=== PATIENT | male | born 1935 | race Caucasian/White ===

== ENCOUNTER → 2016-08-15 | Outpatient (REF) | payer MEDICARE, OTHER | LOC: M LABDRAWC 11:11 | PROVIDERS: ATTEND Urology | DX: R35.0 Frequency of micturition (principal) ==

== ENCOUNTER → 2016-08-15 | Outpatient (REF) | payer MEDICARE, OTHER ==
[2016-08-15 12:33] LABS: ALBUMIN 3.4 GM/DL (3.2-5.2); ALBUMIN/GLOBULIN RATIO 1.06 (1.00-1.93); BILIRUBIN,TOTAL 0.4 MG/DL (0.2-1.0); CALCIUM LEVEL 9.4 MG/DL (8.8-10.2); CREATININE FOR GFR 1.48 MG/DL (0.70-1.30); GLOMERULAR FILTRATION RATE 48.4 (>35); POTASSIUM SERUM 4.8 MEQ/L (3.5-5.1); TOTAL PROTEIN 6.6 GM/DL (6.4-8.2)
== END ==
LOC: M SFHCCLAY 07:33
PROVIDERS: ATTEND Family Medicine
DX: E11.65 Type 2 diabetes mellitus with hyperglycemia (principal); R35.0 Frequency of micturition

== ENCOUNTER → 2017-02-12 | Outpatient (REF) | payer MEDICARE, OTHER ==
[2017-02-12 12:47] LABS: ALBUMIN 3.2 GM/DL (3.2-5.2); ALBUMIN/GLOBULIN RATIO 1.07 (1.00-1.93); BILIRUBIN,TOTAL 0.4 MG/DL (0.2-1.0); CALCIUM LEVEL 8.9 MG/DL (8.8-10.2); CREATININE FOR GFR 1.3 MG/DL (0.70-1.30); GLOMERULAR FILTRATION RATE 56.1 (>35); POTASSIUM SERUM 4.7 MEQ/L (3.5-5.1); TOTAL PROTEIN 6.2 GM/DL (6.4-8.2)
== END ==
LOC: M SFHCCLAY 08:12
PROVIDERS: ATTEND Family Medicine
DX: E11.65 Type 2 diabetes mellitus with hyperglycemia (principal)

== ENCOUNTER → 2017-08-14 | Outpatient (REF) | payer MEDICARE, OTHER ==
[2017-08-14 11:43] LABS: ALBUMIN 3.5 GM/DL (3.2-5.2); ALBUMIN/GLOBULIN RATIO 1.17 (1.00-1.93); ALKALINE PHOSPHATASE 63 U/L (45-117); ALT/SGPT 13 U/L (12-78); ANION GAP 7 MEQ/L (8-16); AST/SGOT 12 U/L (7-37); BILIRUBIN,TOTAL 0.5 MG/DL (0.2-1.0); BLOOD UREA NITROGEN 20 MG/DL (7-18); CARBON DIOXIDE LEVEL 28 MEQ/L (21-32); CHLORIDE LEVEL 109 MEQ/L (98-107); CHOLESTEROL LEVEL 134 MG/DL (<200); CHOLESTEROL RISK RATIO 2.913 (<5); CREATININE FOR GFR 1.24 MG/DL (0.70-1.30); GLOMERULAR FILTRATION RATE 59.3 (>35); GLUCOSE, FASTING 119 MG/DL (70-100); HDL CHOLESTEROL 46 MG/DL (>40); NON-HDL-C 88 MG/DL; POTASSIUM SERUM 4.6 MEQ/L (3.5-5.1); PSA SCREENING 0.26 NG/ML (< 4.0); SODIUM LEVEL 144 MEQ/L (136-145); TOTAL PROTEIN 6.5 GM/DL (6.4-8.2); TRIGLYCERIDES LEVEL 70 MG/DL (<150)
[2017-08-14 13:24] LABS: ESTIMATED AVERAGE GLUCOSE 157 MG/DL (60-110); HEMOGLOBIN A1c 7.1 %
== END ==
LOC: M SFHCCLAY 07:48
DX: Z12.5 Encounter for screening for malignant neoplasm of prostate (principal); E11.65 Type 2 diabetes mellitus with hyperglycemia; I10 Essential (primary) hypertension
CPT/HCPCS: 84443

== ENCOUNTER → 2018-02-05 | Outpatient (REF) | payer MEDICARE, OTHER ==
[2018-02-05 11:55] LABS: ESTIMATED AVERAGE GLUCOSE 183 MG/DL (60-110)
[2018-02-05 12:50] LABS: ALBUMIN 3.2 GM/DL (3.2-5.2); ALKALINE PHOSPHATASE 78 U/L (45-117); ALT/SGPT 21 U/L (12-78); ANION GAP 10 MEQ/L (8-16); AST/SGOT 13 U/L (7-37); BILIRUBIN,TOTAL 0.4 MG/DL (0.2-1.0); BLOOD UREA NITROGEN 23 MG/DL (7-18); CALCIUM LEVEL 8.7 MG/DL (8.8-10.2); CARBON DIOXIDE LEVEL 23 MEQ/L (21-32); CHLORIDE LEVEL 108 MEQ/L (98-107); CREATININE FOR GFR 1.41 MG/DL (0.70-1.30); GLUCOSE, FASTING 133 MG/DL (70-100); POTASSIUM SERUM 4.6 MEQ/L (3.5-5.1); SODIUM LEVEL 141 MEQ/L (136-145); TOTAL PROTEIN 6.1 GM/DL (6.4-8.2)
== END ==
LOC: M SFHCCLAY 07:40
DX: E11.40 Type 2 diabetes mellitus with diabetic neuropathy, unspecified (principal); E03.9 Hypothyroidism, unspecified
CPT/HCPCS: 84443

== ENCOUNTER → 2018-05-23 | Outpatient (CLI) | payer MEDICARE, OTHER ==
--- NOTE | 2018-05-23 11:08 | REP ---
Chest two views HISTORY: Bronchitis Comparison: 03/10/2013 A calcified granuloma is present in the left lower lobe. Linear densities are present in the left lower lobe consistent with scar. The right lung is clear. The heart is normal in size. The pulmonary vasculature is normal in appearance. The bony structure is intact. IMPRESSION: No acute disease.
== END ==
LOC: M CLY 10:26
PROVIDERS: ATTEND Nurse Practitioner Family
DX: R91.8 Other nonspecific abnormal finding of lung field (principal); J40 Bronchitis, not specified as acute or chronic
CPT/HCPCS: 71046; G0463

== ENCOUNTER → 2018-08-05 | Outpatient (REF) | payer MEDICARE, OTHER ==
[2018-08-05 12:19] LABS: ALBUMIN 3.3 GM/DL (3.2-5.2); BILIRUBIN,TOTAL 0.4 MG/DL (0.2-1.0); CALCIUM LEVEL 8.2 MG/DL (8.8-10.2); CREATININE FOR GFR 1.37 MG/DL (0.70-1.30); GLOMERULAR FILTRATION RATE 52.7 (>35); POTASSIUM SERUM 4.5 MEQ/L (3.5-5.1); THYROID STIMULATING HORMONE 7.67 uIU/ML (0.358-3.740); TOTAL PROTEIN 5.9 GM/DL (6.4-8.2)
[2018-08-05 12:28] LABS: HEMOGLOBIN A1c 8.1 %
== END ==
LOC: M SFHCCLAY 07:49
PROVIDERS: ATTEND Family Medicine
DX: E11.40 Type 2 diabetes mellitus with diabetic neuropathy, unspecified (principal); E03.9 Hypothyroidism, unspecified

== ENCOUNTER → 2019-02-06 | Outpatient (REF) | payer MEDICARE, OTHER ==
[2019-02-06 12:10] LABS: HEMOGLOBIN A1c 8.3 %
[2019-02-06 12:12] LABS: ALBUMIN 3.2 GM/DL (3.2-5.2); BILIRUBIN,TOTAL 0.7 MG/DL (0.2-1.0); CALCIUM LEVEL 8.9 MG/DL (8.8-10.2); CREATININE FOR GFR 1.49 MG/DL (0.70-1.30); GLOMERULAR FILTRATION RATE 47.7 (>35); POTASSIUM SERUM 4.7 MEQ/L (3.5-5.1); THYROID STIMULATING HORMONE 4.18 uIU/ML (0.358-3.740)
== END ==
LOC: M SFHCCLAY 07:33
PROVIDERS: ATTEND Family Medicine
DX: E11.40 Type 2 diabetes mellitus with diabetic neuropathy, unspecified (principal); E03.9 Hypothyroidism, unspecified

== ENCOUNTER → 2019-08-07 | Outpatient (REF) | payer MEDICARE, OTHER ==
[2019-08-07 11:47] LABS: ALBUMIN 3.2 GM/DL (3.2-5.2); BILIRUBIN,TOTAL 0.6 MG/DL (0.2-1.0); CALCIUM LEVEL 8.8 MG/DL (8.8-10.2); CHOLESTEROL RISK RATIO 2.425 (<5); CREATININE FOR GFR 1.53 MG/DL (0.70-1.30); GLOMERULAR FILTRATION RATE 46.3 (>35); POTASSIUM SERUM 4.4 MEQ/L (3.5-5.1); THYROID STIMULATING HORMONE 1.89 uIU/ML (0.358-3.740); TOTAL PROTEIN 6.1 GM/DL (6.4-8.2)
[2019-08-07 14:07] LABS: HEMOGLOBIN A1c 8.3 %
== END ==
LOC: M SFHCCLAY 07:39
PROVIDERS: ATTEND Family Medicine
DX: E11.40 Type 2 diabetes mellitus with diabetic neuropathy, unspecified (principal); E03.9 Hypothyroidism, unspecified

== ENCOUNTER → 2020-01-28 | Outpatient (REF) | payer MEDICARE, OTHER ==
[2020-01-28 12:59] LABS: ALBUMIN 3.6 GM/DL (3.2-5.2); BILIRUBIN,TOTAL 0.4 MG/DL (0.2-1.0); CREATININE FOR GFR 1.87 MG/DL (0.70-1.30); GLOMERULAR FILTRATION RATE 36.6 (>35); POTASSIUM SERUM 4.7 MEQ/L (3.5-5.1); THYROID STIMULATING HORMONE 0.91 uIU/ML (0.358-3.740); TOTAL PROTEIN 6.5 GM/DL (6.4-8.2)
[2020-01-28 14:02] LABS: HEMOGLOBIN A1c 7.9 %
== END ==
LOC: M SFHCCLAY 08:26
PROVIDERS: ATTEND Family Medicine
DX: E11.40 Type 2 diabetes mellitus with diabetic neuropathy, unspecified (principal); E03.9 Hypothyroidism, unspecified; Z23 Encounter for immunization
CPT/HCPCS: 80053; 83036; 84443; 90682; G0008

== ENCOUNTER → 2020-08-18 | Outpatient (REF) | payer MEDICARE, OTHER ==
[2020-08-18 16:19] LABS: HEMATOCRIT 35.5 % (42.0-52.0); HEMOGLOBIN 10.8 g/dl (13.5-17.5); MEAN CORPUSCULAR HEMOGLOBIN 27.9 pg (27.0-33.0); MEAN CORPUSCULAR HGB CONC 30.4 g/dl (32.0-36.5); MEAN CORPUSCULAR VOLUME 91.7 fl (80.0-96.0); PLATELET COUNT, AUTOMATED 342 10^3/uL (150-450); RED BLOOD COUNT 3.87 10^6/uL (4.30-6.10); WHITE BLOOD COUNT 10.8 10^3/uL (4.0-10.0)
[2020-08-18 16:53] LABS: ALBUMIN 3.3 GM/DL (3.2-5.2); BILIRUBIN,TOTAL 0.3 MG/DL (0.2-1.0); CALCIUM LEVEL 9.3 MG/DL (8.8-10.2); CHOLESTEROL RISK RATIO 2.456 (<5); CREATININE FOR GFR 1.45 MG/DL (0.70-1.30); GLOMERULAR FILTRATION RATE 49.1 (>35); POTASSIUM SERUM 4.5 MEQ/L (3.5-5.1); THYROID STIMULATING HORMONE 3.11 uIU/ML (0.358-3.740); TOTAL PROTEIN 6.4 GM/DL (6.4-8.2)
[2020-08-18 17:02] LABS: MALB URINE SIEMENS 5.8 MG/L; MAU/CREAT RATIO 4.4 MCG/MG (0.0-30.0)
[2020-08-18 17:27] LABS: HEMOGLOBIN A1c 7.7 %
== END ==
LOC: M SFHCCLAY 10:35
PROVIDERS: ATTEND Family Medicine
DX: I10 Essential (primary) hypertension (principal); E11.40 Type 2 diabetes mellitus with diabetic neuropathy, unspecified; E78.2 Mixed hyperlipidemia; E03.9 Hypothyroidism, unspecified

== ENCOUNTER → 2020-08-26 | Outpatient (CLI) | payer MEDICARE, OTHER ==
--- NOTE | 2020-08-26 16:02 | REP ---
INDICATION: M54.5 LOW BACK PAIN COMPARISON: None. TECHNIQUE: AP, lateral, bilateral oblique, and coned-down views of the lumbar spine. FINDINGS: Age-related osteopenia noted. No acute fracture/compression injury or subluxation. Moderate to advanced multilevel degenerative changes throughout the visualized lower thoracic and lumbosacral spine include osteophytosis, endplate sclerosis, facet hypertrophy, and disc space narrowing. Findings most pronounced at L4-5 and L5-S1. IMPRESSION: Osteopenia and moderate to advanced multilevel degenerative spondylosis. No acute fracture/compression injury or acute subluxation. <Electronically signed by Rogerio Stone > 08/26/20 [id number]
== END ==
LOC: M CLY 15:36
PROVIDERS: ATTEND Family Medicine
DX: M85.88 Other specified disorders of bone density and structure, other site (principal); M47.816 Spondylosis without myelopathy or radiculopathy, lumbar region; M54.5 Low back pain
CPT/HCPCS: 72110; G0463

== ENCOUNTER → 2021-03-21 | Outpatient (CLI) | payer MEDICARE, OTHER | LOC: M CLY 10:37 | PROVIDERS: ATTEND Physician Assistant | DX: S49.92XA Unspecified injury of left shoulder and upper arm, initial encounter (principal); Y92.9 Unspecified place or not applicable; Y93.9 Activity, unspecified; Y99.9 Unspecified external cause status | CPT/HCPCS: 73030; 80053; G0463 ==

== ENCOUNTER → 2021-03-21 | Outpatient (REF) | payer MEDICARE, OTHER ==
[2021-03-21 16:31] LABS: ALBUMIN 3.4 GM/DL (3.2-5.2); BILIRUBIN,TOTAL 0.5 MG/DL (0.2-1.0); CALCIUM LEVEL 9.5 MG/DL (8.8-10.2); CREATININE FOR GFR 1.57 MG/DL (0.70-1.30); GLOMERULAR FILTRATION RATE 44.7 (>35); POTASSIUM SERUM 4.7 MEQ/L (3.5-5.1); TOTAL PROTEIN 6.4 GM/DL (6.4-8.2)
== END ==
LOC: M SFHCCLAY 11:20
PROVIDERS: ATTEND Physician Assistant
DX: S49.91XA Unspecified injury of right shoulder and upper arm, initial encounter (principal); X58.XXXA Exposure to other specified factors, initial encounter; Y92.9 Unspecified place or not applicable; Y93.9 Activity, unspecified

== ENCOUNTER → 2021-04-08 | Outpatient (CLI) | payer MEDICARE, OTHER ==
[~2021-04-08] MED LIST: PROHANCE 279.3MG/ML 5ML VIAL ONE
== END ==
LOC: M PLAIMG 09:35
PROVIDERS: ATTEND Physician Assistant
DX: S49.92XA Unspecified injury of left shoulder and upper arm, initial encounter (principal); X58.XXXA Exposure to other specified factors, initial encounter; Y92.9 Unspecified place or not applicable
CPT/HCPCS: 73223; A9576

== ENCOUNTER → 2021-05-18 | Outpatient (REF) | payer MEDICARE, OTHER | LOC: M SFHCCLAY 15:15 | PROVIDERS: ATTEND Physician Assistant | DX: R09.81 Nasal congestion (principal) ==

== ENCOUNTER → 2021-08-19 | Outpatient (REF) | payer MEDICARE, OTHER ==
[2021-08-19 15:41] LABS: BASO # 0.1 10^3/uL (0.0-0.2); BASO % 0.5 % (0.0-1.0); EOS # 0.3 10^3/uL (0.0-0.5); EOS % 3.4 % (0.0-3.0); HEMATOCRIT 38.8 % (42.0-52.0); HEMOGLOBIN 12.3 g/dl (13.5-17.5); LYMPH # 2.1 10^3/uL (1.5-5.0); LYMPH % 22.6 % (24.0-44.0); MEAN CORPUSCULAR HEMOGLOBIN 28.5 pg (27.0-33.0); MEAN CORPUSCULAR HGB CONC 31.7 g/dl (32.0-36.5); MEAN CORPUSCULAR VOLUME 89.8 fl (80.0-96.0); MONO # 0.7 10^3/uL (0.0-0.8); MONO % 7.1 % (2.0-8.0); NEUTROPHILS # 6.2 10^3/uL (1.5-8.5); NEUTROPHILS % 66.1 % (36.0-66.0); PLATELET COUNT, AUTOMATED 248 10^3/uL (150-450); RED BLOOD COUNT 4.32 10^6/uL (4.30-6.10); WHITE BLOOD COUNT 9.3 10^3/uL (4.0-10.0)
[2021-08-19 16:20] LABS: ALBUMIN 3.6 GM/DL (3.2-5.2); BILIRUBIN,TOTAL 0.6 MG/DL (0.2-1.0); CALCIUM LEVEL 9.5 MG/DL (8.8-10.2); CHOLESTEROL RISK RATIO 2.725 (<5); CREATININE FOR GFR 1.54 MG/DL (0.70-1.30); GLOMERULAR FILTRATION RATE 45.7 (>35); POTASSIUM SERUM 4.6 MEQ/L (3.5-5.1); THYROID STIMULATING HORMONE 3.7 uIU/ML (0.358-3.740); TOTAL PROTEIN 6.4 GM/DL (6.4-8.2)
[2021-08-19 16:31] LABS: HEMOGLOBIN A1c 9.2 %
== END ==
LOC: M SFHCCLAY 14:02
PROVIDERS: ATTEND Family Medicine
DX: E11.40 Type 2 diabetes mellitus with diabetic neuropathy, unspecified (principal); E03.9 Hypothyroidism, unspecified; N18.32 Chronic kidney disease, stage 3b; I12.9 Hypertensive chronic kidney disease with stage 1 through stage 4 chronic kidney disease, or unspecified chronic kidney disease; E78.2 Mixed hyperlipidemia

== ENCOUNTER → 2021-11-02 | Outpatient (CLI) | payer MEDICARE, OTHER | LOC: M CARPUL 13:06 | PROVIDERS: ATTEND Internal Medicine Cardiovascular Disease | DX: R06.00 Dyspnea, unspecified (principal) ==

== ENCOUNTER → 2022-02-10 | Outpatient (REF) | payer MEDICARE, OTHER ==
[2022-02-10 18:31] LABS: ALBUMIN 3.3 GM/DL (3.2-5.2); BILIRUBIN,TOTAL 0.6 MG/DL (0.2-1.0); CALCIUM LEVEL 9.2 MG/DL (8.8-10.2); CREATININE FOR GFR 1.7 MG/DL (0.70-1.30); GLOMERULAR FILTRATION RATE 40.7 (>35); THYROID STIMULATING HORMONE 2.47 uIU/ML (0.358-3.740); TOTAL PROTEIN 6.4 GM/DL (6.4-8.2)
[2022-02-10 21:17] LABS: HEMOGLOBIN A1c 8.5 %
== END ==
LOC: M SFHCCLAY 11:17
PROVIDERS: ATTEND Family Medicine
DX: E11.40 Type 2 diabetes mellitus with diabetic neuropathy, unspecified (principal); E03.9 Hypothyroidism, unspecified

== ENCOUNTER → 2022-04-19 | Outpatient (CLI) | payer MEDICARE, OTHER | LOC: M LABSMTC 09:49 | PROVIDERS: ATTEND Anesthesiology | DX: Z01.812 Encounter for preprocedural laboratory examination (principal); Z20.822 Contact with and (suspected) exposure to COVID-19 ==

== ENCOUNTER 2022-04-24 06:23 | Day surgery (SDC) | payer MEDICARE, OTHER ==
[~2022-04-24] VITALS: Ht 171.4 cm; Wt 103.0 kg
[~2022-04-24 06:23] MED LIST changes: +ALBU90AE INH; +ALFU10TA3 PO; +CYCLOPENTOLATE 1% OPHTH SOLN 2ML BTL OD SCH; +FINA5TAB2 PO; +FLURBIPROFEN 0.03% OPHTH SOLN 2.5 ML OD SCH; +GABA600T4 PO; +METF500T13 PO; +PHENYLEPHRINE 2.5% OPHTH SOL 2ML OD SCH; +PRED10TA2 PO; -PROHANCE 279.3MG/ML 5ML VIAL ONE; +RABE1TAB4 PO; +SITA50TAB PO; +SYNT100T PO; +TETRACAINE 0.5% OPHTH SOLN 4ML OD SCH; +VICT18IN SC
[2022-04-24] MEDS ORDERED: LIDOCAINE 1% SDV 5ML VIAL As Ordered ONE (06:31)
[2022-04-24] MEDS ORDERED: LR 1,000 ML IV SCH (07:00)
[2022-04-24 09:05] VITALS: BP 155/66
== END 2022-04-24 09:05 | disposition home or self-care (01) ==
LOC: M SDC 06:23
PROVIDERS: ATTEND Ophthalmology
DX: H25.811 Combined forms of age-related cataract, right eye (principal); E03.9 Hypothyroidism, unspecified; E11.9 Type 2 diabetes mellitus without complications; Z88.8 Allergy status to other drugs, medicaments and biological substances; Z79.899 Other long term (current) drug therapy
CPT/HCPCS: 66984; V2632

== ENCOUNTER → 2022-08-03 | Outpatient (REF) | payer MEDICARE, OTHER ==
[~2022-08-03] MED LIST changes: -CYCLOPENTOLATE 1% OPHTH SOLN 2ML BTL OD SCH; -FLURBIPROFEN 0.03% OPHTH SOLN 2.5 ML OD SCH; -PHENYLEPHRINE 2.5% OPHTH SOL 2ML OD SCH; -TETRACAINE 0.5% OPHTH SOLN 4ML OD SCH
[2022-08-03 18:33] LABS: ALBUMIN 3.5 G/DL (3.2-5.2); ALKALINE PHOSPHATASE 81 U/L (46-116); ALT/SGPT 15 U/L (7.0-40); AST/SGOT < 8 U/L (<34); BILIRUBIN,TOTAL 0.4 MG/DL (0.3-1.2); BLOOD UREA NITROGEN 25 MG/DL (9-23); CALCIUM LEVEL 9.3 MG/DL (8.3-10.6); CARBON DIOXIDE LEVEL 28 MMOL/L (20-31); CHLORIDE LEVEL 105 MMOL/L (98-107); CHOLESTEROL LEVEL 125 MG/DL (<200); CHOLESTEROL RISK RATIO 2.53 (<5); CREATININE FOR GFR 1.48 MG/DL (0.70-1.30); GLOMERULAR FILTRATION RATE 47.8 (>35); GLUCOSE, FASTING 129 MG/DL (74-106); HDL CHOLESTEROL 49.3 MG/DL (>40); LDL CHOLESTEROL 59.5 MG/DL (<100); MAGNESIUM LEVEL 1.6 MG/DL (1.8-2.4); NON-HDL-C 75.7 MG/DL; POTASSIUM SERUM 4.4 MMOL/L (3.5-5.1); SODIUM LEVEL 138 MMOL/L (136-145); TRIGLYCERIDES LEVEL 81 MG/DL (<150)
[2022-08-03 18:34] LABS: THYROID STIMULATING HORMONE 2.025 uIU/ML (0.55-4.78)
== END ==
LOC: M SFHCCLAY 13:28
PROVIDERS: ATTEND Family Medicine
DX: E78.2 Mixed hyperlipidemia (principal); K21.9 Gastro-esophageal reflux disease without esophagitis; E11.40 Type 2 diabetes mellitus with diabetic neuropathy, unspecified; E03.9 Hypothyroidism, unspecified

== ENCOUNTER → 2023-02-06 | Outpatient (REF) | payer MEDICARE, OTHER ==
[2023-02-06 18:22] LABS: THYROID STIMULATING HORMONE 3.465 uIU/ML (0.55-4.78)
[2023-02-06 18:23] LABS: ALBUMIN 3.3 G/DL (3.2-5.2); BILIRUBIN,TOTAL 0.4 MG/DL (0.3-1.2); CALCIUM LEVEL 8.9 MG/DL (8.3-10.6); CREATININE FOR GFR 1.49 MG/DL (0.70-1.30); GLOMERULAR FILTRATION RATE 47.3 (>35); MAGNESIUM LEVEL 1.3 MG/DL (1.8-2.4); POTASSIUM SERUM 4.7 MMOL/L (3.5-5.1); TOTAL PROTEIN 6.1 G/DL (5.7-8.2)
== END ==
LOC: M SFHCCLAY 13:19
PROVIDERS: ATTEND Family Medicine
DX: E11.40 Type 2 diabetes mellitus with diabetic neuropathy, unspecified (principal); E03.9 Hypothyroidism, unspecified; K21.9 Gastro-esophageal reflux disease without esophagitis

== ENCOUNTER → 2023-09-11 | Outpatient (REF) | payer MEDICARE, OTHER ==
[~2023-09-11] MED LIST changes: -ALBU90AE INH; +ALBU90AE2 INH
== END ==
LOC: M LABDRAWC 17:20
PROVIDERS: ATTEND Physician Assistant
DX: J02.9 Acute pharyngitis, unspecified (principal)

== ENCOUNTER 2023-09-21 15:58 | Observation (INO) | payer MEDICARE, OTHER ==
[~2023-09-21] VITALS: Ht 170.2 cm; Wt 100.5 kg
[~2023-09-21 15:58] MED LIST changes: -ALBU8.5H INH; -BASA100I SC; -DOXY100C3 PO; -FURO20TA2 PO; -JANU25TA PO; -JARD1TAB3 PO; -LYRI75CA PO; -MONT10TA97 PO; -PANT40TA29 PO; -PEN-61 SC; -PRES10CA2 PO; -SYNT125T PO; -TAMS1CAP17 PO
[2023-09-21] MEDS: HumuLIN R (REGULAR) INSULIN (NovoLIN R) **100U/ML** PER UNIT IV ONE (20:01)
[2023-09-21] MEDS: NS 1,000 ML IV ONE (20:02)
[2023-09-21 20:40] LABS: VENOUS BASE EXCESS -1.2 (-2.0-2.0); VENOUS HCO3 22.2 MMOL/L (23.0-27.0); VENOUS O2 SATURATION 96.9 % (60.0-80.0); VENOUS PARTIAL PRESSURE CO2 33.8 mmHg (38.0-50.0); VENOUS PARTIAL PRESSURE O2 96.7 mmHg (30.0-50.0); VENOUS PH 7.436 UNITS (7.330-7.430); VENOUS STANDARD HCO3 23.5 MMOL/L; VENOUS TOTAL CO2 23.3 MMOL/L (24.0-28.0)
[2023-09-21 20:52] LABS: BASO # 0.1 10^3/uL (0.0-0.2); BASO % 0.4 % (0.0-1.0); EOS # 0.1 10^3/uL (0.0-0.5); EOS % 1.1 % (0.0-3.0); HEMOGLOBIN 14.6 g/dl (13.5-17.5); LYMPH # 2.4 10^3/uL (1.5-5.0); LYMPH % 18.9 % (24.0-44.0); MEAN CORPUSCULAR HEMOGLOBIN 29.2 pg (27.0-33.0); MEAN CORPUSCULAR HGB CONC 32.4 g/dl (32.0-36.5); MONO # 0.2 10^3/uL (0.0-0.8); MONO % 1.5 % (2.0-8.0); NEUTROPHILS # 9.9 10^3/uL (1.5-8.5); NEUTROPHILS % 77.7 % (36.0-66.0); WHITE BLOOD COUNT 12.7 10^3/uL (4.0-10.0)
[2023-09-21 21:19] LABS: ALBUMIN 3.1 G/DL (3.2-5.2); BILIRUBIN,DIRECT 0.2 MG/DL (<0.4); BILIRUBIN,TOTAL 0.7 MG/DL (0.3-1.2); CALCIUM LEVEL 9.6 MG/DL (8.3-10.6); CREATININE FOR GFR 1.43 MG/DL (0.70-1.30); GLOMERULAR FILTRATION RATE 49.6 (>35); MAGNESIUM LEVEL 1.8 MG/DL (1.8-2.4); PHOSPHORUS LEVEL 4.3 MG/DL (2.4-5.1); POTASSIUM SERUM 4.9 MMOL/L (3.5-5.1); TOTAL PROTEIN 6.1 G/DL (5.7-8.2)
[2023-09-21] MEDS ORDERED: ISOVUE-370 76% 100ML VIAL As Ordered ONE (21:30)
[2023-09-21 21:40] LABS: ACETONE/KETONE 0.32 MMOL/L (0.02-0.27)
[2023-09-21] MEDS: NS 500 ML IV ONE (22:09)
[2023-09-22] MEDS ORDERED: GLUCAGON INJ 1MG VIAL SC PRN (01:10)
[2023-09-22] MEDS ORDERED: GLUCOSE 4 GM CHEW PO PRN (01:10)
[2023-09-22] MEDS ORDERED: DEXTROSE 50% 50ML SYRINGE IV PRN (01:10)
[2023-09-22] MEDS ORDERED: ALBU8.5H INH (01:29)
[2023-09-22] MEDS ORDERED: MONT10TA97 PO (01:29)
[2023-09-22] MEDS ORDERED: TAMS1CAP17 PO (01:29)
[2023-09-22] MEDS ORDERED: SYNT125T PO (01:29)
[2023-09-22] MEDS ORDERED: PRES10CA2 PO (01:29)
[2023-09-22] MEDS ORDERED: LYRI75CA PO (01:29)
[2023-09-22] MEDS ORDERED: JARD1TAB3 PO (01:29)
[2023-09-22] MEDS ORDERED: FURO20TA2 PO (01:29)
[2023-09-22] MEDS ORDERED: PANT40TA29 PO (01:29)
[2023-09-22] MEDS ORDERED: DOXY100C3 PO (01:31)
[2023-09-22] MEDS ORDERED: HOME MED LIST COMPLETE! XX SCH (01:35)
[2023-09-22 04:25] VITALS: BP 141/68; TEMP 97.7; O2SAT 99
[2023-09-22 06:30] LABS: HEMATOCRIT 40.1 % (42.0-52.0); HEMOGLOBIN 13.2 g/dl (13.5-17.5); MEAN CORPUSCULAR HEMOGLOBIN 29.3 pg (27.0-33.0); MEAN CORPUSCULAR HGB CONC 32.9 g/dl (32.0-36.5); MEAN CORPUSCULAR VOLUME 89.1 fl (80.0-96.0); PLATELET COUNT, AUTOMATED 210 10^3/uL (150-450); WHITE BLOOD COUNT 13.6 10^3/uL (4.0-10.0)
[2023-09-22 07:06] LABS: ACETONE/KETONE 0.67 MMOL/L (0.02-0.27)
[2023-09-22 07:11] LABS: ALBUMIN 2.7 G/DL (3.2-5.2); ALKALINE PHOSPHATASE 90 U/L (46-116); ALT/SGPT 14 U/L (7.0-40); AST/SGOT < 8 U/L (<34); BILIRUBIN,TOTAL 0.8 MG/DL (0.3-1.2); BLOOD UREA NITROGEN 23 MG/DL (9-23); CALCIUM LEVEL 9.3 MG/DL (8.3-10.6); CARBON DIOXIDE LEVEL 26 MMOL/L (20-31); CHLORIDE LEVEL 103 MMOL/L (98-107); CREATININE FOR GFR 1.28 MG/DL (0.70-1.30); GLOMERULAR FILTRATION RATE 56.3 (>35); GLUCOSE, FASTING 295 MG/DL (74-106); MAGNESIUM LEVEL 1.7 MG/DL (1.8-2.4); POTASSIUM SERUM 4.3 MMOL/L (3.5-5.1); SODIUM LEVEL 137 MMOL/L (136-145); TOTAL PROTEIN 5.3 G/DL (5.7-8.2)
[2023-09-22] MEDS: SENNA 8.6 MG TAB (SENOKOT) PO SCH (09:59)
[2023-09-22] MEDS: MONTELUKAST 10 MG TAB PO SCH (09:59)
[2023-09-22] MEDS: DOXYCYCLINE HYCLATE 100MG TABLET PO SCH (09:59)
[2023-09-22] MEDS: PANTOPRAZOLE 40MG TAB (PROTONIX) PO SCH (09:59)
[2023-09-22] MEDS: PREGABALIN 75 MG CAP(LYRICA) PO SCH (09:59)
[2023-09-22] MEDS: DOCUSATE SODIUM 100MG CAPSULE PO SCH (09:59)
[2023-09-22] MEDS: FINASTERIDE 5MG TAB PO SCH (10:00)
[2023-09-22] MEDS: TAMSULOSIN 0.4 MG CAP PO SCH (10:00)
[2023-09-22] MEDS: INSULIN LISPRO (NovoLOG) PER UNIT SC SCH ×2 (10:01→20:36)
[2023-09-22] MEDS: LEVOTHYROXINE 125MCG TABLET (0.125MG) PO SCH (10:01)
[2023-09-22] MEDS: LEVEMIR (INSULIN DETEMIR) 1 UNITS/0.01ML SC SCH (10:01)
[2023-09-22] MEDS: HEPARIN SOD (PORCINE) 5000UNITS/ML 1ML VIAL/SYRINGE SC SCH (10:02)
[2023-09-22 11:09] LABS: HEMOGLOBIN A1c > 14.0 % (4.0-6.0)
[2023-09-22 12:00] VITALS: BP 118/57; TEMP 97.5; O2SAT 99
[2023-09-22] MEDS ORDERED: PEN-61 SC (13:05)
[2023-09-22] MEDS ORDERED: BASA100I SC (13:05)
[2023-09-22] MEDS: ACETAMINOPHEN TAB 650MG DOSE (2X325MG) PO PRN (13:14)
[2023-09-22] MEDS: NS 1,000 ML IV ONE (14:56)
[2023-09-22] MEDS: GASTROGRAFIN SOLUTION 30ML PO SCH (14:56)
[2023-09-22 20:02] VITALS: BP 120/57; TEMP 97.7; O2SAT 95
[2023-09-23 04:15] VITALS: BP 119/54; TEMP 97.5; O2SAT 100
[2023-09-23 07:13] LABS: HEMATOCRIT 39.7 % (42.0-52.0); HEMOGLOBIN 12.6 g/dl (13.5-17.5); MEAN CORPUSCULAR HGB CONC 31.7 g/dl (32.0-36.5); MEAN CORPUSCULAR VOLUME 91.5 fl (80.0-96.0); PLATELET COUNT, AUTOMATED 167 10^3/uL (150-450); RED BLOOD COUNT 4.34 10^6/uL (4.30-6.10); WHITE BLOOD COUNT 10.1 10^3/uL (4.0-10.0)
[2023-09-23 07:34] LABS: ALBUMIN 2.4 G/DL (3.2-5.2); BILIRUBIN,TOTAL 0.6 MG/DL (0.3-1.2); CALCIUM LEVEL 8.9 MG/DL (8.3-10.6); CREATININE FOR GFR 1.3 MG/DL (0.70-1.30); GLOMERULAR FILTRATION RATE 55.3 (>35); MAGNESIUM LEVEL 1.7 MG/DL (1.8-2.4); POTASSIUM SERUM 4.3 MMOL/L (3.5-5.1); TOTAL PROTEIN 4.9 G/DL (5.7-8.2)
[2023-09-23] MEDS ORDERED: JANU25TA PO (09:25)
[2023-09-23] MEDS ORDERED: BASA100I SC (09:25)
[2023-09-23] MEDS ORDERED: VICT18IN SC (09:25)
== END 2023-09-23 10:46 | disposition home or self-care (01) ==
LOC: M ED 15:58 → M ED INP 15:59 → M MSPAV 09-22 04:08
PROVIDERS: ADMIT Family Medicine; ATTEND Internal Medicine Nephrology
DX: N48.1 Balanitis (principal); E11.40 Type 2 diabetes mellitus with diabetic neuropathy, unspecified; E11.65 Type 2 diabetes mellitus with hyperglycemia; K21.9 Gastro-esophageal reflux disease without esophagitis; E03.9 Hypothyroidism, unspecified; N18.30 Chronic kidney disease, stage 3 unspecified; D64.9 Anemia, unspecified; I12.9 Hypertensive chronic kidney disease with stage 1 through stage 4 chronic kidney disease, or unspecified chronic kidney disease; E78.5 Hyperlipidemia, unspecified; N40.0 Benign prostatic hyperplasia without lower urinary tract symptoms; J30.2 Other seasonal allergic rhinitis; R05.9 Cough, unspecified; Z79.899 Other long term (current) drug therapy; Z88.0 Allergy status to penicillin
CPT/HCPCS: 36415; 70491; 71046; 74177; 80048; 80053; 80061; 80076; 81001; 82010; 82803; 83036; 83540; 83690; 83735; 83930; 84100; 84443; 85025; 85027; 86664; 86665; 93005; 96372; 96374; 96375; 96376; 97161; 97530; 99285; G0378; J1815; Q9963; Q9967

== ENCOUNTER → 2023-09-21 | Outpatient (REF) | payer MEDICARE, OTHER ==
[~2023-09-21] MED LIST changes: +ALBU8.5H INH; +BASA100I SC; +DOXY100C3 PO; +FURO20TA2 PO; +JANU25TA PO; +JARD1TAB3 PO; +LYRI75CA PO; +MONT10TA97 PO; +PANT40TA29 PO; +PEN-61 SC; +PRES10CA2 PO; +SYNT125T PO; +TAMS1CAP17 PO
[2023-09-21 11:31] LABS: BASO % 0.3 % (0.0-1.0); EOS # 0.2 10^3/uL (0.0-0.5); EOS % 1.3 % (0.0-3.0); HEMATOCRIT 43.3 % (42.0-52.0); HEMOGLOBIN 13.6 g/dl (13.5-17.5); LYMPH # 1.6 10^3/uL (1.5-5.0); MEAN CORPUSCULAR HEMOGLOBIN 28.8 pg (27.0-33.0); MEAN CORPUSCULAR HGB CONC 31.4 g/dl (32.0-36.5); MEAN CORPUSCULAR VOLUME 91.7 fl (80.0-96.0); MONO # 0.7 10^3/uL (0.0-0.8); NEUTROPHILS # 10.6 10^3/uL (1.5-8.5); PLATELET COUNT, AUTOMATED 241 10^3/uL (150-450); RED BLOOD COUNT 4.72 10^6/uL (4.30-6.10); WHITE BLOOD COUNT 13.1 10^3/uL (4.0-10.0)
[2023-09-21 11:43] LABS: HEMOGLOBIN A1c 13.5 % (4.0-6.0)
[2023-09-21 12:01] LABS: IRON (FE) 69 UG/DL (65-175)
[2023-09-21 12:04] LABS: THYROID STIMULATING HORMONE 0.705 uIU/ML (0.55-4.78)
[2023-09-21 12:27] LABS: ALBUMIN 2.9 G/DL (3.2-5.2); ALKALINE PHOSPHATASE 109 U/L (46-116); ALT/SGPT 15 U/L (7.0-40); AST/SGOT < 8 U/L (<34); BILIRUBIN,TOTAL 0.6 MG/DL (0.3-1.2); BLOOD UREA NITROGEN 27 MG/DL (9-23); CALCIUM LEVEL 9.6 MG/DL (8.3-10.6); CARBON DIOXIDE LEVEL 28 MMOL/L (20-31); CHLORIDE LEVEL 97 MMOL/L (98-107); CHOLESTEROL LEVEL 138 MG/DL (<200); CHOLESTEROL RISK RATIO 2.81 (<5); CREATININE FOR GFR 1.53 MG/DL (0.70-1.30); GLOMERULAR FILTRATION RATE 45.9 (>35); GLUCOSE, FASTING 763 MG/DL (74-106); LDL CHOLESTEROL 63.8 MG/DL (<100); MAGNESIUM LEVEL 1.8 MG/DL (1.8-2.4); POTASSIUM SERUM 5.1 MMOL/L (3.5-5.1); SODIUM LEVEL 130 MMOL/L (136-145); TOTAL PROTEIN 5.9 G/DL (5.7-8.2); TRIGLYCERIDES LEVEL 126 MG/DL (<150)
[2023-09-24 14:23] LABS: EBV VIRAL CAPSID AG IGM < 36.00 U/mL (<36.00)
== END ==
LOC: M SFHCCLAY 08:27
PROVIDERS: ATTEND Family Medicine
DX: E11.40 Type 2 diabetes mellitus with diabetic neuropathy, unspecified (principal); R05.9 Cough, unspecified; D64.9 Anemia, unspecified; E03.9 Hypothyroidism, unspecified; K21.9 Gastro-esophageal reflux disease without esophagitis

== ENCOUNTER → 2023-09-21 | Outpatient (CLI) | payer MEDICARE, OTHER | LOC: M CLY 08:34 | PROVIDERS: ATTEND Family Medicine | DX: R05.9 Cough, unspecified (principal) ==

== ENCOUNTER → 2023-10-10 | Outpatient (REF) | payer MEDICARE, OTHER ==
[~2023-10-10] MED LIST changes: +ALBU8.5H INH; +ALFU10TA23 PO; -ALFU10TA3 PO; +BASA100I SC; +DOXY100C3 PO; +FURO20TA2 PO; +JANU25TA PO; +JARD1TAB3 PO; +LYRI75CA PO; +MONT10TA97 PO; +PANT40TA29 PO; +PEN-61 SC; +PRES10CA2 PO; +SYNT125T PO; +TAMS1CAP17 PO
[2023-10-10 13:05] LABS: BLOOD UREA NITROGEN 19 MG/DL (9-23); CALCIUM LEVEL 8.9 MG/DL (8.3-10.6); CARBON DIOXIDE LEVEL 27 MMOL/L (20-31); CHLORIDE LEVEL 109 MMOL/L (98-107); CREATININE FOR GFR 1.11 MG/DL (0.70-1.30); GLOMERULAR FILTRATION RATE > 60.0 (>35); GLUCOSE, FASTING 192 MG/DL (74-106); MAGNESIUM LEVEL 1.4 MG/DL (1.8-2.4); POTASSIUM SERUM 4.3 MMOL/L (3.5-5.1); SODIUM LEVEL 139 MMOL/L (136-145)
== END ==
LOC: M SFHCCLAY 08:00
PROVIDERS: ATTEND Family Medicine
DX: E11.22 Type 2 diabetes mellitus with diabetic chronic kidney disease (principal); N18.32 Chronic kidney disease, stage 3b

== ENCOUNTER → 2023-10-18 | Outpatient (REF) | payer MEDICARE, OTHER | LOC: M SFHCCLAY 13:58 | PROVIDERS: ATTEND Family Medicine | DX: U07.1 COVID-19 (principal) ==